=== PATIENT | female | born 1960 | race Caucasian/White ===

== ENCOUNTER 2018-01-28 15:13 | Emergency (ER) | payer BC ==
[~2018-01-28] VITALS: Ht 165.1 cm; Wt 71.6 kg
[2018-01-28 15:44] LABS: COLOR,URINE YELLOW (Yellow); GLUCOSE, URINE NEGATIVE (Neg); KETONES,URINE NEGATIVE (Neg); LEUKOCYTE ESTERASE ,URINE SMALL (Neg); NITRITES, URINE POSITIVE (Neg); PROTEIN,URINE NEGATIVE (Neg); UROBILINOGEN,URINE 0.2 E.U/dL (0.2-1.0)
[2018-01-28 15:45] LABS: CLARITY,URINE CLOUDY (Clear); OCCULT BLOOD,URINE SMALL (Neg); PH,URINE 5.5 (4.8-8.0)
[2018-01-28 15:49] LABS: UA COLLECTION TYPE CLN CATCH MIDSTREAM
[2018-01-28 15:50] LABS: MUCUS STRANDS FEW /LPF (Neg); SQUAMOUS EPITHELIAL CELL,UR MODERATE /LPF (FEW)
[2018-01-28 15:51] LABS: BACTERIA,URINE 2+ /HPF (Neg); WBC,URINE 50-100 /HPF (0-4)
[2018-01-28] MEDS ORDERED: phenazopyridine 100mg tablet PO ONE (16:25)
[2018-01-28] MEDS ORDERED: nitrofuran/nitrofuran macrocrysal 100 MG capsule PO ONE (16:25)
[2018-01-28] MEDS ORDERED: PHEN-716 PO (16:27)
[2018-01-28] MEDS ORDERED: NITR100C6 PO (16:27)
[2018-01-28 16:41] VITALS: BP 145/98
== END 2018-01-28 16:42 | disposition home or self-care (01) ==
LOC: ER 15:14
DX: N39.0 Urinary tract infection, site not specified (principal); M54.5 Low back pain; F17.200 Nicotine dependence, unspecified, uncomplicated; Z90.710 Acquired absence of both cervix and uterus; Z88.5 Allergy status to narcotic agent; Z79.899 Other long term (current) drug therapy
CPT/HCPCS: 81001; 87077; 87088; 87186; 99284